=== PATIENT | female | born 1975 | race Caucasian/White ===

== ENCOUNTER 2023-05-29 13:26 | Outpatient (RCR) | payer SELFPAY ==
[2023-05-29 14:08] LABS: Hematocrit 32.3 % (37-47); Mean Corp Hgb Conc 27.9 g/dL (32-36); Mean Corpuscular Hgb 22.7 pg (27.0-32.0); Mean Corpuscular Volume 81.4 fL (81-99); Mean Platelet Vol. 10.2 fl (6.2-12.0); Platelet Count 278 K/mm3 (150-450); RBC Distribution Width CV 17.1 % (11.6-14.6); RBC Distribution Width SD 48.4 fl (35.1-43.9); Red Blood Count 3.97 M/mm3 (4.2-5.4); White Blood Count 7.2 K/mm3 (4.4-11.0)
[2023-05-29 14:24] LABS: Iron 23 ug/dL (50-170); Iron Binding Capacity,Total 575 ug/dL (250-450)
== END 2023-05-29 18:00 | disposition home or self-care (01) ==
LOC: LAB 13:26
PROVIDERS: Visit Provider Nurse Practitioner Family
DX: D64.9 Anemia, unspecified (principal); E66.01 Morbid (severe) obesity due to excess calories; K76.0 Fatty (change of) liver, not elsewhere classified
CPT/HCPCS: 83540; 83550; 85027